=== PATIENT | female | born 1985 | race American Indian/Alaskan Native ===

== ENCOUNTER 2019-02-01 09:15 | Emergency (ER) | payer BC, OTHER ==
[2019-02-01 09:25] VITALS: BP 148/68
--- NOTE | 2019-02-01 10:24 | Emergency Department Report ---
ED General Adult HPI - General Chief complaint: Weakness Stated complaint: FEELING ILL Time Seen by Provider: 02/01/19 10:08 Source: patient Mode of arrival: Ambulatory Limitations: No Limitations - History of Present Illness Initial comments: 33-year-old -[place] female presents to the emergency room complaining of dizziness wheezings headache and nausea for 4 days. Patient reports that she took Goody powder at 10:30 last night. Patient denies any sneezing, runny nose, nasal congestion, watery eyes. She does report a past medical history anxiety. She does have a primary care provider Dr Sandra Rosales. Onset/Timin -: days(s) Severity scale (0 -10): 8 Improves with: none Worsens with: none Associated Symptoms: headaches Treatments Prior to Arrival: NSAID - Related Data Previous Rx's Medication Instructions Recorded Last Taken Type Acetaminophen/Codeine [Tylenol #3] 1 tab PO Q6H PRN #14 tab 08/03/15 Unknown Rx Amoxicillin [Trimox CAP] 500 mg PO Q8H #30 capsule 08/03/15 Unknown Rx Acetaminophen with Codeine 1 tab PO Q6HR #12 tab 09/09/15 Unknown Rx [Acetaminophen-Codeine #4 TAB] Ibuprofen [Motrin 800 MG tab] 800 mg PO Q8HR PRN #30 tablet 09/09/15 Unknown Rx Penicillin Vk [Veetids TAB] 500 mg PO QID #40 tablet 09/09/15 Unknown Rx traMADol [Ultram] 50 mg PO Q6HR PRN #20 tablet 09/09/15 Unknown Rx Allergies Allergy/AdvReac Type Severity Reaction Status Date / Time No Known Allergies Allergy Verified 08/03/15 12:46 ED Review of Systems ROS: Stated complaint: FEELING ILL Other details as noted in HPI Comment: All other systems reviewed and negative ED Past Medical Hx - Past Medical History Previous Medical History?: No Additional medical history: OBESITY - Surgical History Past Surgical History?: No - Social History Smoking Status: Never Smoker Substance Use Type: Marijuana - Medications Home Medications: Home Medications Medication Instructions Recorded Confirmed Last Taken Type Acetaminophen/Codeine [Tylenol #3] 1 tab PO Q6H PRN #14 tab 08/03/15 Unknown Rx Amoxicillin [Trimox CAP] 500 mg PO Q8H #30 capsule 08/03/15 Unknown Rx Acetaminophen with Codeine 1 tab PO Q6HR #12 tab 09/09/15 Unknown Rx [Acetaminophen-Codeine #4 TAB] Ibuprofen [Motrin 800 MG tab] 800 mg PO Q8HR PRN #30 tablet 09/09/15 Unknown Rx Penicillin Vk [Veetids TAB] 500 mg PO QID #40 tablet 09/09/15 Unknown Rx traMADol [Ultram] 50 mg PO Q6HR PRN #20 tablet 09/09/15 Unknown Rx ED Physical Exam - General Limitations: No Limitations General appearance: alert, in no apparent distress - Head Head exam: Present: atraumatic, normocephalic - Eye Eye exam: Present: normal appearance - ENT ENT exam: Present: mucous membranes moist - Neck Neck exam: Present: normal inspection - Respiratory Respiratory exam: Present: normal lung sounds bilaterally. Absent: respiratory distress - Cardiovascular Cardiovascular Exam: Present: regular rate, normal rhythm. Absent: systolic murmur, diastolic murmur, rubs, gallop - GI/Abdominal GI/Abdominal exam: Present: soft, normal bowel sounds - Extremities Exam Extremities exam: Present: normal inspection - Back Exam Back exam: Present: normal inspection - Neurological Exam Neurological exam: Present: alert, oriented X3 - Psychiatric Psychiatric exam: Present: normal affect, normal mood - Skin Skin exam: Present: warm, dry, intact, normal color. Absent: rash ED Course Vital Signs 02/01/19 02/01/19 09:19 09:23 Temperature 98.2 F Pulse Rate 65 68 Respiratory 12 Rate Blood Pressure 148/68 O2 Sat by Pulse 100 Oximetry ED Medical Decision Making - Medical Decision Making 33-year-old -[place] female presents to the emergency room complaining of dizziness, weakness , headache and nausea for 4 days. Patient reports that she took Goody powder at 10:30 last night. Patient denies any sneezing, runny nose, nasal congestion, watery eyes. She does report a past medical history anxiety. She does have a primary care provider Dr Sandra Rosales. Critical care attestation.: If time is entered above; I have spent that time in minutes in the direct care of this critically ill patient, excluding procedure time. ED Disposition Clinical Impression: Viral syndrome Disposition: DC-01 TO HOME OR SELFCARE Is pt being admited?: No Does the pt Need Aspirin: No Condition: Stable Instructions: Viral Syndrome (ED) Additional Instructions: Increase clear fluid intake. Take Tylenol and/or Motrin as needed for headaches. Follow-up with her primary care provider if his symptoms persist or gets worse. Referrals: PRIMARY CARE, [Primary Care Provider] - 3-5 Days Hoang Hernandez [Other] - 3-5 Days Forms: Work/School Release Form(ED)
[2019-02-01] MEDS ORDERED: TYLENOL PO ONE (10:25)
[2019-02-01 11:13] LABS: HCG Qualitative,Urine Negative (Negative)
[2019-02-01 11:21] LABS: Bilirubin,Urine NEG (Negative); Blood,Urine MOD (Negative); Color,Urine Yellow (Yellow); Mucus,Urine FEW /HPF; Protein,Urine <15 mg/dL mg/dL (Negative); Urobilinogen,Urine < 2.0 mg/dL (<2.0)
[2019-02-01] MEDS ORDERED: ZOFRAN ODT PO ONE (13:17)
[2019-02-01] MEDS ORDERED: ZOFRAN ODT ONE (13:17)
== END 2019-02-01 13:19 | disposition home or self-care (01) ==
LOC: ED 09:15
DX: B34.9 Viral infection, unspecified (principal); F12.90 Cannabis use, unspecified, uncomplicated; Z79.899 Other long term (current) drug therapy
CPT/HCPCS: 81001; 81025; 99283; Q0162